=== PATIENT | male | born 1965 | race African-American/Black ===

== ENCOUNTER 2020-07-27 09:20 | Emergency (ER) | payer MEDICARE, SELFPAY ==
[2020-07-27 09:42] VITALS: BP 203/76; PULSE 83; RESP 18; TEMP 36.9; O2SAT 100
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
== END 2020-07-27 10:12 | disposition home or self-care (01) ==
PROVIDERS: Emergency Provider Nurse Practitioner
DX: S61.255A Open bite of left ring finger without damage to nail, initial encounter (principal); W50.3XXA Accidental bite by another person, initial encounter
CPT/HCPCS: 99203; G0463

== ENCOUNTER 2021-12-30 14:30 | Outpatient (RCR) | payer MEDICARE, SELFPAY ==
[2021-12-05 14:34] VITALS: BP_SYST 90
--- NOTE | 2021-12-05 15:41 | PTOPEVAL ---
Thank you for referring Horacio Pang to [facility].? The patient is scheduled to be seen for therapy 2 x/week for 4 weeks. Please review, sign, date and return this plan of care JYOTI. I agree with and certify that the following plan of care is medically necessary. Referring Physician Date Attending Provider: Joey Keenan MD Referring Provider: Joey Keenan MD Diagnosis left shoulder pain Onset 05/09 Subjective Information He was running up the steps Query Text:As Reported By Patient/ when he fell. He does not Family remember how he landed. The pain did not start until 2-3 wk later. He reports limitations with reaching, ADL's, carrying objects away from the body. He is using his right UE more with activities. Pain is waking him at night. 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 Pain Assessment Left Shoulder(s) Reported Pain Level 7 Pain Description Aching Pain Frequency Chronic Lowest Pain Intensity 6 Greatest Pain Intensity 10 Pain Aggravating Factors ADL's,Lifting,Prolonged Position Upper Extremity Range of Motion Scapular/ Shoulder Range of Motion Left Shoulder Flexion - Active 68 Shoulder Flexion - Passive 105 Shoulder Extension - Active 35 Shoulder Abduction - Active 55 Shoulder Abduction - Passive 90 Shoulder Medial Rotation - Active 30 Shoulder Medial Rotation - Active left buttock:Reach Behind the Back Shoulder Lateral Rotation - Active 30 Shoulder Lateral Rotation - Active unable to reach back of head:Reach Behind the Head Scapular/Shoulder Range of Motion Muscle Weakness,Pain,Soft Limitations Tissue Restriction Scapular/Shoulder Range of Motion active ROM tested seated Comments passive rotation measured with Gh joint abd 50 dg pain with all motion Upper Extremity Muscle Strength Testing Scapular/Shoulder Left Scapular Retraction - Rhomboid 2 Poor Scapular Retraction - Middle Trapezius 2 Poor Scapular Retraction - Lower Trapezius 2 Poor Shoulder Flexion Strength 3- Fair - Shoulder Extension Strength 3- Fair - Shoulder Abduction Strength 3- Fair - Shoulder Medial Rotation Strength 4 Good Shoulder Lateral Rotation Strength 4 Good Muscle Length Testing Pectoralis Minor Muscle Length (R) Severe Tightness,(L) Severe Tightness Posture Sitting Position Head/C-Spine Posture
--- NOTE | 2021-12-06 14:22 | PCPTNOTE ---
Patient did not show up for scheduled appointment this date. Called & was unable to leave a message.
--- NOTE | 2021-12-18 09:21 | PCPTNOTE ---
Patient called & cancelled scheduled appointment this date due to to being out of town.
--- NOTE | 2021-12-30 15:11 | PCPTNOTE ---
Patient did not show up for scheduled appointment this date. Called and had to leave a message.
--- NOTE | 2022-01-02 11:25 | PCPTNOTE ---
Patient did not show up for scheduled appointment this date.
--- NOTE | 2022-01-02 11:25 | PCPTNOTE ---
Patient called & cancelled scheduled appointment 25 minutes after its scheduled start time due to not knowing what time his appointment was, and because he has to take his car to the shop. He has been rescheduled at this time.
--- NOTE | 2022-01-10 08:28 | PCPTNOTE ---
Patient did not show up for scheduled appointment this date. Called, left voicemail.
--- NOTE | 2022-01-10 08:30 | PCPTNOTE ---
Attending Provider: Joey Keenan MD Patient:Horacio Pang Date of :1965 PHYSICAL THERAPY DISCHARGE SUMMARY. Patient has not returned for any further treatments since 12/30/2021. Patient?s initial visit was on 12/05/2021 14:30 and had a total of 4 visits. Since his initial evaluation he has cancelled 2 times, and no showed 4 times, therefore he will be discharged at this time Thank you for referring this patient to [facility]. Please review, sign, date and return this discharge summary JYOTI. I have been updated about the patient's current status and I agree with discharge from the above service at this time. Referring Physician Date
== END 2022-01-10 15:53 | disposition home or self-care (01) ==
LOC: ANHPT 14:30
PROVIDERS: PCP Emergency Medicine; Referring Provider Emergency Medicine; Visit Provider Emergency Medicine
DX: S46.002D Unspecified injury of muscle(s) and tendon(s) of the rotator cuff of left shoulder, subsequent encounter (principal)
CPT/HCPCS: 97110; 97140; 97161

== ENCOUNTER 2022-01-17 21:10 | Emergency (ER) | payer MEDICARE, SELFPAY ==
--- NOTE | ~2022-01-17 | XR_ITS ---
EXAMINATION: XR chest 2V DATE: 01/17/2022 22:44 INDICATION: Hypertension, transient alteration of awareness TECHNIQUE: PA and lateral views of the chest are obtained. COMPARISON: None available FINDINGS: The lungs are free of acute opacities. No pleural effusion or pneumothorax. The cardiomedia stinal silhouette is normal. The visualized bones and soft tissues are unremarkable. IMPRESSION: 1. No acute cardiopulmonary abnormality. Reviewed, dictated and finalized at location F.
--- NOTE | ~2022-01-17 | CT_ITS ---
EXAMINATION: CT brain wo con INDICATION: Dizziness and hypertension COMPARISON: None TECHNIQUE: Standard unenhanced head CT. The dose-length product (DLP) was 605.33 mGy-cm. The mA was a djusted according to patient size. Iterative reconstruction technique was employed. FINDINGS: There is no intracranial hemorrhage, acute infarction, or abnormal mass lesion. The ventric les are normal. There is no abnormal mass effect or midline shift. The watson-white matter differentiat ion is normal. The basal cisterns are patent. Intracranial calcified cerebral atherosclerosis is note d. The orbits are normal. The paranasal sinuses, mastoids and calvarium are normal. IMPRESSION: 1. No acute intracranial abnormality. Reviewed, dictated and finalized at location F.
--- NOTE | ~2022-01-17 | CT_ITS ---
EXAMINATION: CTA chest PE protocol DATE: 01/18/2022 00:43 INDICATION: Syncope. Elevated d-dimer. TECHNIQUE: Computed tomography angiography (CTA) of the chest was performed with 100 mL Omnipaque-350 intravenous contrast timed to evaluate the pulmonary arteries. Coronal maximum intensity projection 3D-reconstructions were created by the technologist. Automated exposure control and iterative reconst ruction technique were employed. Exam dose: 275.07 mGy-cm total exam DLP. COMPARISON: 01/17/2022 PA and lateral chest FINDINGS: There is moderate opacification the pulmonary arteries and no evidence of pulmonary embolis m. There is atherosclerotic calcification of the thoracic aorta and coronary arteries. No thoracic aorti c aneurysm or dissection is evident. Normal heart size. No pericardial or pleural effusion. No hilar or mediastinal mass lesion or lymphadenopathy. No pulmonary infiltrate or consolidation or pulmonary mass lesion. Normal morphology of the adrenal g lands. Included skeletal structures are unremarkable. IMPRESSION: No evidence of pulmonary embolism Reviewed, dictated and finalized at Location A. Reviewed, dictated and finalized at location A.
[2022-01-17 21:28] VITALS: BP 205/74; PULSE 81; RESP 18; TEMP 36.5; O2SAT 100
--- NOTE | 2022-01-17 21:35 | ECG_ITS ---
Measurements Intervals [place] Rate: 76 P: 43 WV: 168 QRS: 33 QRSD: 93 T: 19 QT: 343 QTc: 388 Interpretive Statements SINUS RHYTHM POSSIBLE LEFT ATRIAL ENLARGEMENT VOLTAGE CRITERIA FOR LVH MINIMAL Q WAVES- LATERAL LEADS BORDERLINE ECG Electronically Signed On 01-18-2022 7:47:31 CDT by Javid Dorado D.O.
[2022-01-17] MEDS: SODIUM CHLORIDE 0.9% IV 1,000 ML 999 ML IV CONT (21:52)
[2022-01-17 21:58] LABS: Basophils Percent Auto 0.3 % (0.2-1.2); Eosinophils Absolute Auto 0.1 K/mm3 (0-0.3); Eosinophils Percent Auto 1.3 % (0-4.4); Hematocrit 41.8 % (42.0-52.0); Hemoglobin 13.7 g/dL (14.0-18.0); Immature Granulocyte Absolute 0.02 K/mm3 (0.00-0.031); Immature Granulocyte Percent A 0.2 % (0-0.5); Lymphocytes Absolute Auto 2.85 K/mm3 (0.9-3.2); Lymphocytes Percent Auto 32.8 % (18.3-44.2); Mean Corpuscular HGB Conc 32.8 g/dl (32-36); Mean Corpuscular Hemoglobin 29.9 pg (26-34); Mean Corpuscular Volume 91.3 fl (80-100); Mean Platelet Volume 10.3 fl (7.4-10.4); Monocytes Absolute Auto 0.7 K/mm3 (0.1-0.6); Monocytes Percent Auto 8.2 % (2.6-8.5); Neutrophils Percent Auto 57.2 % (45.5-73.1); Platelet Count Result 279 k/mm3 (150-375); Red Blood Count 4.58 M/mm3 (4.6-6.20); Red Cell Distribution Width 13.2 % (11.5-14.5); White Blood Count 8.7 K/mm3 (4.5-10.0)
[2022-01-17 22:08] LABS: Alanine Aminotransferase 19 U/L (6-50); Albumin Level 4.9 g/dL (3.5-5.1); Alkaline Phosphatase 76 U/L (38-126); Anion Gap 7 mmol/L (8-16); Aspartate Amino Transferase 27 U/L (17-59); Bilirubin,Total 0.2 mg/dL (0.2-1.3); Blood Urea Nitrogen 12 mg/dL (9-20); Calcium 9.2 mg/dL (8.4-10.2); Carbon Dioxide 31 mmol/L (22-30); Chloride 102 mmol/L (98-107); Estimated CRCL calculation 54 ml/min; Estimated Glomerular Filt Rate > 60; Glucose 101 mg/dL (65-110); Potassium 3.7 mmol/L (3.4-5.0); Sodium 140 mmol/L (137-145)
[2022-01-17 22:09] VITALS: O2SAT 100
[2022-01-17 22:09] LABS: Partial Thromboplastin Time 30.4 SECONDS (22.3-36.8); Prothrombin Time 13.1 Seconds (11.1-14.7)
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
[2022-01-17 22:20] LABS: Troponin I < 0.012 ng/mL (0.000-0.034)
[2022-01-17 22:44] VITALS: BP 207/63; PULSE 87; RESP 20; O2SAT 100
[2022-01-17 22:52] LABS: Appearance Urine Clear (Clear); Bilirubin Urine Negative (Negative); Blood Urine Trace-lysed (Negative); Color Urine Yellow (Yellow); Glucose Urine UA Negative (Negative); Ketones Urine Negative (Negative); Leukocyte Esterase Ur Negative LEU/UL (Negative); Nitrate Urine Negative (Negative); Protein Urine Trace mg/dL (Negative); pH Urine 5.5 (5.0-9.0)
[2022-01-17 23:06] LABS: Mucus Urine Rare /lpf; RBC Urine 0-2 /hpf (0-2); Squamous Epithelial Cell Urine Rare /hpf (Few); WBC Urine 0-3 /hpf
[2022-01-17 23:23] VITALS: BP 190/66; PULSE 91; RESP 18; O2SAT 100
[2022-01-17] MEDS: hydrALAZINE HCL 20 MG/ML VIAL 10 MG IV PUSH (23:24)
[2022-01-17 23:29] LABS: Add Urine Microscopic? YES
[2022-01-17 23:53] VITALS: BP 186/64; PULSE 97; RESP 18; O2SAT 100
[2022-01-18] VITALS (7 sets, daily range): BP systolic 147–174; BP diastolic 61–76; PULSE 89–102; RESP 16–18; O2SAT 98–99
[2022-01-18 00:08] LABS: D Dimer 0.83 ug/mL (<0.48)
[2022-01-18 03:27] LABS: Troponin I < 0.012 ng/mL (0.000-0.034)
[2022-01-18] MEDS: SODIUM CHLORIDE 0.9% IV 500 ML 999 ML IV CONT (03:46)
== END 2022-01-18 04:54 | disposition home or self-care (01) ==
PROVIDERS: Physician Assistant; Emergency Provider Emergency Medicine; PCP Emergency Medicine
DX: I16.0 Hypertensive urgency (principal); R55 Syncope and collapse
CPT/HCPCS: 36415; 70450; 71046; 71275; 80053; 81001; 84484; 85025; 85380; 85610; 85730; 93005; 96361; 96374; 99284; J0360; J7030; J7040; Q9967

== ENCOUNTER 2025-01-19 14:59 | Outpatient (CLI) | payer OTHER, SELFPAY ==
--- NOTE | ~2025-01-19 | XR_ITS ---
EXAM: XR hand RT 2V DATE: 01/19/2025 15:20 HISTORY: M79.641 - Pain in right hand . COMPARISON: None available. FINDINGS: Normal mineralization. No fracture or dislocation. Possible old fracture deformity involvi ng the distal aspect of the right first metacarpal. No lytic or blastic lesion. Mild scattered degene rative changes. No erosion or periosteal change. Soft tissues within normal limits. 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 Reviewed, dictated and finalized at location K.
--- OUTSIDE RECORDS SUMMARY | 2025-01-19 15:07 | XMS_ITS | Clinical Summary ---
Author Organization [facility] Address [address] [place] [address] Care Team Providers Care Element Setter Name Role Phone Unavailable Primary Care Provider Unavailabl e Social History Tobacco Use Types Packs/Day Years Used Date Smoking Tobacco: Never Assessed Sex and Gender Information Value Date Recorded Sex Assigned at Not on file Legal Sex Male 5:55 PM CDT Gender Identity Not on file Sexual Orientation Not on file Plan of Treatment Health Maintenance Due Date Last Done Comments Colorectal Cancer Screening Colonoscopy (10 Years) 1965 Annual Physical 1966 Hepatitis C 1981 DTaP, Tdap and Td Vaccines ( 1 - Tdap) 1982 Pneumococcal Vaccine: 50+ Ye ars (1 of 1 - PCV) 2013 Zoster Vaccines (1 of 2) 2013 COVID-19 Vaccine ( - 2023-2 5 season) 2024 RSV Immunization or 60+ Years (1 - 1-dose 75+ series) 2038 Meningococcal B Vaccine Aged Out No l onger eligible based on patient's age to complete this topic Meningococcal Vaccine Aged Out No celso gay eligible based on patient's age to complete this topic RSV Immunizations Under 20 Months Aged Out No longer eligible based on patient's age to complete this topic
--- OUTSIDE RECORDS SUMMARY | 2025-01-19 15:07 | XMS_ITS | Clinical Summary ---
Author Organization [facility] Address [address] [place] [address] Care Team Providers Care Customs Compliance Analyst Name Role Phone None, Physician Primary Care Provider Unavailabl e Source Comments [facility],non-owned Affiliates and Associated Physician Practices is amultiple site organization consisting of ambulatory clinics and hospital sitesin [place], [place], [place] and [place]. This disclosure is being madepursuant to the Care Everywhere program and may not contain all information available regarding this patient. Last updated 18.[employer] [facility] Allergies No known active allergies Medications * Be aware that medications may not be up to date on this document. Alwaysverify current medications with the patient. ibuprofen (Motrin) 400 MG tablet Take 1 (one) tablet by mouth every 6 hours as needed for Pain 30 tablet 4 Active acetaminophen (Tylenol) 500 MG tablet Take 1 (one) tablet by mouth every 4 hours as needed for Fever or Pain Maximum allowable Acetaminophen amount = 4 Grams (4000 mg) / 24 hours. 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 Gender Identity Not on file Sexual Orientation Not on file Last Filed Vital Signs Vital Sign Reading Time Taken Comments Blood Pressure 201/79 11/11/2023 9:30 PM CDT Pulse 98 11/11/2023 7:54 PM CDT Temperature 37.2 C (99 F) 11/11/2023 3:59 PM CDT Respiratory Rate 18 11/11/2023 3:59 PM CDT Oxygen Saturation 96% 11/11/2023 9:30 PM CDT Inhaled Oxygen Concentration - - Weight 72.6 kg (160 lb) 11/11/2023 3:59 PM CDT Height 172.7 cm (5' 8) 11/11/2023 3:59 PM CDT Body Mass Index 24.33 11/11/2023 3:59 PM CDT Plan of Treatment Health Maintenance Due Date Last Done Comments COLOGUARD (AGES 45-75) - COL ON CA SCREENING 1965 COLON MONITORING 1965 COLONOSCOPY - COLON CA SCREENING 1963 CT COLONOGRAPHY - COLON CA SCREENING 1965 Colorectal Cancer Screening 1965 FIT - COLON CA SCREENING 1965 FLEX SIG - COLON CA SCREENING 1965 LIPID TESTING 1965 HIV SCREENING 1978 HEPATITIS C SCREENING 02/11/1981 PNEUMOCOCCAL VACCINE 50+ (1 of 1 - PCV) 2013 ZOSTER VACCINE (1 of 2) 2013 COVID-19 VACCINE (2023-2 5 season) 2024 DEPRESSION SCREENING 07/20/2024 MEDICARE AWV CALENDAR YEAR 2024 INFLUENZA VACCINE (Season Ended) 2025 DTAP/TDAP/TD VACCINES (2 - T d or Tdap) 11/10/2033 11/11/2023 Respiratory Syncytial Virus (RSV) Vaccine Pt: or over 60 yrs (1 - 1-dose 75+ series) 2038 HEPATITIS B VACCINE Aged Out No longe r eligible based on patient's age to complete this topic HIB VACCINE Aged Out No longer eligi ble based on patient's age to complete this topic HPV VACCINE Aged Out No longer eligi ble based on patient's age to complete this topic MENINGOCOCCAL (Group B) VACC INE SHARED DECISION-MAKING Aged Out No longer eligibl e based on patient's age to complete this topic MENINGOCOCCAL GROUPS A/C/Y/W VACCINE Aged Out No longer eligible b ased on patient's age to complete this topic Insurance [employer] [facility] MEDICARE ADV Care Teams Customs Compliance Analyst Relationship Specialty Start Date End Date None, Physician [address] [place] [address] PCP - General 11/11/23
== END 2025-01-19 15:00 | disposition home or self-care (01) ==
PROVIDERS: PCP Emergency Medicine; Visit Provider Emergency Medicine
DX: M19.041 Primary osteoarthritis, right hand (principal)
CPT/HCPCS: 73120